=== PATIENT | male | born 1980 | race Caucasian/White ===

== ENCOUNTER 2019-09-15 08:10 | Outpatient (CLI) | payer BC | END 2019-09-15 08:11 | disposition home or self-care (01) | LOC: CTENTCT 08:10 | PROVIDERS: ATTEND Otolaryngology Plastic Surgery within the Head & Neck | DX: J32.9 Chronic sinusitis, unspecified (principal) | CPT/HCPCS: 70486 ==

== ENCOUNTER 2019-09-25 08:10 | Outpatient (CLI) | payer BC, OTHER ==
[2019-09-26 11:34] LABS: SARS-CoV-2 MS2 Positive; SARS-CoV-2 N Gene Negative; SARS-CoV-2 S Gene Negative; SARS-CoV-2 orf1ab Negative
== END 2019-09-25 08:11 | disposition home or self-care (01) ==
LOC: LABBT 08:10
PROVIDERS: ATTEND Otolaryngology Plastic Surgery within the Head & Neck
DX: Z01.812 Encounter for preprocedural laboratory examination (principal); Z11.59 Encounter for screening for other viral diseases; J32.0 Chronic maxillary sinusitis; J32.1 Chronic frontal sinusitis; J34.2 Deviated nasal septum; J32.3 Chronic sphenoidal sinusitis; J33.9 Nasal polyp, unspecified; J34.3 Hypertrophy of nasal turbinates; J32.2 Chronic ethmoidal sinusitis
CPT/HCPCS: 87635; U0003

== ENCOUNTER 2019-09-30 06:39 | Day surgery (SDC) | payer BC ==
[2019-09-24 14:40] VITALS: BMI 34.0
[2019-09-30] MEDS ORDERED: Lidocaine 1% (PF) 30 ML VIAL ONE (06:54)
[2019-09-30] MEDS ORDERED: Bacitracin Zinc Ointment 30 gm TUBE ONE (06:55)
[2019-09-30] MEDS ORDERED: AFRIN NASAL MIST 15 ML BOT ONE ×2 (06:55→07:27)
[2019-09-30] MEDS ORDERED: Lidocaine 1% w/Epinephrine 1:100K 20 ML VIAL ONE (06:55)
[2019-09-30] MEDS ORDERED: Midazolam HCl 2 mg/2 ml Vial ONE (08:40)
[2019-09-30] MEDS ORDERED: Fentanyl 100 MCG/2 ML VIAL ONE ×4 (08:40→11:33)
[2019-09-30] MEDS ORDERED: Lidocaine 1% PF 5 ML VIAL ONE (11:23)
[2019-09-30] MEDS ORDERED: Dexamethasone 20 MG/5 ML VIAL ONE (11:23)
[2019-09-30] MEDS ORDERED: PROPOFOL 200 MG/20 ML VIAL ONE (11:23)
[2019-09-30] MEDS ORDERED: Ondansetron PF 4 MG/2 ML Vial ONE (11:23)
[2019-09-30] MEDS ORDERED: HYDROcodone/Acetaminophen 5/325 mg Tablet ONE (12:21)
--- NOTE | 2019-10-07 10:56 | OP ---
DATE OF PROCEDURE: 09/30/2019 PREOPERATIVE DIAGNOSES: 1. Chronic pansinusitis. 2. Bilateral severe nasal polyposis. 3. Allergic fungal sinusitis. 4. Nasal septal deviation. 5. Bilateral inferior turbinate hypertrophy. 6. Nasal obstruction. POSTOPERATIVE DIAGNOSES: 1. Chronic pansinusitis. 2. Bilateral severe nasal polyposis. 3. Allergic fungal sinusitis. 4. Nasal septal deviation. 5. Bilateral inferior turbinate hypertrophy. 6. Nasal obstruction. PROCEDURES PERFORMED: 1. Bilateral endoscopic sinus surgery, total ethmoidectomy including sphenoidotomies with removal of tissue. 2. Bilateral endoscopic sinus surgery, maxillary antrostomies with removal of tissue. 3. Bilateral endoscopic sinus surgery, frontal sinus exploration. 4. Bilateral inferior turbinate submucosal resection. 5. Nasoseptoplasty. 6. [employer] stereotactic image-guided navigational surgery. ESTIMATED BLOOD LOSS: 50 mL. COMPLICATIONS: None. ANESTHESIA: GETA. PROCEDURE IN DETAIL: Patient was taken to the operating room and placed supine on the table. General endotracheal anesthesia was obtained by the anesthesia staff. Then 1% lidocaine with 1:100,000 epinephrine was injected into the nasal septum as well as the inferior turbinates. The patient was prepped and draped in standard surgical fashion. The Afrin pledgets were then removed. A [place] incision was made on the left nasal septum. Submucoperichondrial dissection was performed bilaterally of the deviated portions of the septum, which included the maxillary crest and the crest deviation, as well as the mid portion of the septum. Cartilage and bony deviation was removed, leaving a generous caudal and dorsal strut. Any straight pieces of cartilage were then placed within the cartilage press, pressed, straightened, and then placed between the mucoperichondrial flaps, which were then closed using a 4-0 gut stitch. The inferior turbinates were then punctured with the submucosal Coblation machine, and 3 separate coblations were delivered to the anterior inferior portion of the inferior turbinates. Following this, the nasal cavity was irrigated. All debris was removed. An orogastric tube was placed. Gastric contents and Greene splints were then placed in the nasal cavity and sutured with a 3-0 silk stitch. Following this, 1% lidocaine with 1:100,000 epinephrine were injected into the middle turbinates and lateral nasal wall bilaterally. Following this, the 0-degree endoscope was used to visualize the middle turbinate and the middle turbinate was medially fractured using a [place] elevator. Following this, the uncinate process was identified and was examined. The uncinate process was noted to be inflamed and laterally displaced bilaterally. Following this, a ball-ended probe was used to anteriorly fracture the uncinate process bilaterally. Following this, the 0-degree microdebrider and the up-biting [place]akes[place] forceps were used to remove the uncinate process bilaterally. Following this, the natural maxillary sinus ostia was identified with the 0-degree endoscope and the ball-ended probe. The natural maxillary ostia was then widened using a 40-degree microdebrider and the straight Blakesley forceps bilaterally. Following this, the ethmoidal bulla was identified bilaterally. A 0-degree microdebrider was used to puncture the ethmoidal bulla on its medial and inferior aspect bilaterally. Following this, the 0-degree microdebrider and the up-biting Blakesley forceps were used to remove the ethmoidal bulla. Following this, the grand lamella was identified posterior to this area and was punctured using the 0-degree microdebrider bilaterally. Following this, the ethmoidal cells were opened from the posterior to the anterior using the 0-degree microdebrider, the 40-degree microdebrider and the up-biting Blakesley forceps bilaterally. Following this, the 45-degree endoscope and the 40-degree microdebrider blade were used to further remove the anterior ethmoidal cells to the level of the frontal sinus recess bilaterally. Please note that the 40-degree microdebrider and up-biting Blakesley forceps were used to remove nasal polyps from throughout the ethmoidal sinuses and maxillary sinus bilaterally. Following this, the sphenoid sinus was approached through the previous ethmoidectomies under navigational guidance with the 0-degree microdebrider. Anterior wall of the sphenoid sinus was punctured using the 0-degree microdebrider bilaterally and the sphenoid sinus ostia was widened in a medial and inferior direction bilaterally. Nasal polyps were removed from the sphenoid sinuses bilaterally using the 0-degree microdebrider and straight Blakesley forceps. Following this, a 45-degree endoscope was used to further open the anterior ethmoidal cells and expose the frontal sinus ostia bilaterally. Following this, the frontal sinus ostia was widened using a 40-degree microdebrider. Nasal polyps and necrotic bone were removed from the frontal sinus area with the 40-degree microdebrider and the up-biting Blakesley forceps. Following this, the nasal cavity was irrigated. NasoPore packing was placed within the middle meatus. Greene splints were placed and secured and [employer] image-guided system was turned off. The patient tolerated the procedure well. Job ID: [id number]
== END 2019-09-30 13:30 | disposition home or self-care (01) ==
LOC: SDC 06:39
PROVIDERS: ATTEND Otolaryngology Plastic Surgery within the Head & Neck
PROC: 09TU8ZZ Resection of Right Ethmoid Sinus, Via Natural or Artificial Opening Endoscopic (ICD-10-PCS; principal; 2019-09-30)
PROC: 09TL0ZZ Resection of Nasal Turbinate, Open Approach (ICD-10-PCS; principal; 2019-09-30)
PROC: 09BR8ZZ Excision of Left Maxillary Sinus, Via Natural or Artificial Opening Endoscopic (ICD-10-PCS; principal; 2019-09-30)
PROC: 099T8ZZ Drainage of Left Frontal Sinus, Via Natural or Artificial Opening Endoscopic (ICD-10-PCS; principal; 2019-09-30)
PROC: 09BX8ZZ Excision of Left Sphenoid Sinus, Via Natural or Artificial Opening Endoscopic (ICD-10-PCS; principal; 2019-09-30)
PROC: 8E09XBZ Computer Assisted Procedure of Head and Neck Region (ICD-10-PCS; principal; 2019-09-30)
PROC: 099S8ZZ Drainage of Right Frontal Sinus, Via Natural or Artificial Opening Endoscopic (ICD-10-PCS; principal; 2019-09-30)
PROC: 09SM0ZZ Reposition Nasal Septum, Open Approach (ICD-10-PCS; principal; 2019-09-30)
PROC: 09BQ8ZZ Excision of Right Maxillary Sinus, Via Natural or Artificial Opening Endoscopic (ICD-10-PCS; principal; 2019-09-30)
PROC: 09TV8ZZ Resection of Left Ethmoid Sinus, Via Natural or Artificial Opening Endoscopic (ICD-10-PCS; principal; 2019-09-30)
PROC: 09BW8ZZ Excision of Right Sphenoid Sinus, Via Natural or Artificial Opening Endoscopic (ICD-10-PCS; principal; 2019-09-30)
DX: J32.4 Chronic pansinusitis (principal); J33.9 Nasal polyp, unspecified; J30.89 Other allergic rhinitis; J34.2 Deviated nasal septum; J34.3 Hypertrophy of nasal turbinates; J34.89 Other specified disorders of nose and nasal sinuses; J45.20 Mild intermittent asthma, uncomplicated; D80.2 Selective deficiency of immunoglobulin A [IgA]; G47.30 Sleep apnea, unspecified; D83.9 Common variable immunodeficiency, unspecified; Z87.891 Personal history of nicotine dependence; Z79.899 Other long term (current) drug therapy; Z88.1 Allergy status to other antibiotic agents; Z88.8 Allergy status to other drugs, medicaments and biological substances; Z91.013 Allergy to seafood; Z91.041 Radiographic dye allergy status
CPT/HCPCS: C2625; J1100; J2001; J2250; J2405; J2704; J3010